=== PATIENT | female | born 1955 | race Caucasian/White ===

== ENCOUNTER → 2019-05-03 | Outpatient (CLI) | payer OTHER ==
[~2019-05-03] MED LIST: Budeprion Xl300 MG PO; CENTRUM SILVER1 EAC3 PO; Celexa10 MG PO; LEVSOD88 PO
[2019-05-03 15:27] LABS: Source, Urine Clean Catch
[2019-05-03 16:18] LABS: Bilirubin, Urine Neg (Neg); Blood, Urine Neg (Neg); Glucose Qualitative, Urine Neg (Neg); Ketones, Urine Neg (Neg); Leukocyte Esterase, Urine Neg (Neg); Nitrite, Urine Neg (Neg); Protein, Urine Neg (Neg); Urobilinogen, Urine NORM (Normal)
[2019-05-03 16:19] LABS: Appearance, Urine Clear (Clear); Color, Urine Yellow (P-Yellow)
== END | disposition home or self-care (01) ==
LOC: LAB 15:26 → LAB SHORT 15:26
PROVIDERS: Registered Nurse
DX: R32 Unspecified urinary incontinence (principal)
CPT/HCPCS: 81003

== ENCOUNTER → 2020-05-18 | Outpatient (CLI) | payer OTHER | END | disposition home or self-care (01) | LOC: PLD 08:54 → LAB SHORT 08:54 | DX: D22.4 Melanocytic nevi of scalp and neck (principal) | CPT/HCPCS: 88305 ==

== ENCOUNTER → 2021-04-19 | Outpatient (CLI) | payer MEDICARE, OTHER | LOC: LAB SHORT 16:45 | DX: R10.9 Unspecified abdominal pain (principal); R19.7 Diarrhea, unspecified | CPT/HCPCS: 87086 ==

== ENCOUNTER → 2021-05-05 | Outpatient (CLI) | payer MEDICARE, OTHER | END | disposition home or self-care (01) | LOC: LAB SHORT 10:56 | DX: D22.71 Melanocytic nevi of right lower limb, including hip (principal); L81.4 Other melanin hyperpigmentation | CPT/HCPCS: 88305 ==

== ENCOUNTER 2022-10-10 07:44 | Day surgery (SDC) | payer MEDICARE, OTHER ==
[~2022-10-10] VITALS: Ht 167.6 cm; Wt 61.7 kg
== END 2022-10-10 09:46 | disposition home or self-care (01) ==
LOC: ORSCSDS 07:44
PROVIDERS: Internal Medicine Gastroenterology
PROC: 0DBK8ZX Excision of Ascending Colon, Via Natural or Artificial Opening Endoscopic, Diagnostic (ICD-10-PCS; principal; 2022-10-10 09:00)
DX: Z12.11 Encounter for screening for malignant neoplasm of colon (principal); Z86.010 Personal history of colon polyps; D37.4 Neoplasm of uncertain behavior of colon; K57.30 Diverticulosis of large intestine without perforation or abscess without bleeding; E03.9 Hypothyroidism, unspecified; Z85.3 Personal history of malignant neoplasm of breast; Z79.899 Other long term (current) drug therapy
CPT/HCPCS: J2704; J7120

== ENCOUNTER → 2023-10-20 | Outpatient (CLI) | payer MEDICARE, OTHER ==
[2023-10-20 17:11] LABS: Bacterial Vaginosis PCR Negative (NEGATIVE); Candida Group, PCR NOT DETECTED (NOT DETECT); Candida glabrata-krusei, PCR NOT DETECTED (NOT DETECT)
== END | disposition home or self-care (01) ==
LOC: LAB SHORT 14:40 → LAB 14:40
PROVIDERS: Family Medicine
DX: Z01.419 Encounter for gynecological examination (general) (routine) without abnormal findings (principal)
CPT/HCPCS: 87481; 87661; 87801

== ENCOUNTER 2025-06-16 07:17 | Day surgery (SDC) | payer MEDICARE, OTHER ==
[~2025-06-16] VITALS: Ht 165.1 cm; Wt 61.2 kg
[2025-06-16] MEDS ORDERED: Bupivacaine 0.5% HCl 5 MG/ML 30MLVIAL ONE (07:23)
[2025-06-16] MEDS ORDERED: Midazolam HCl 1MG / ML 2ML Vial ONE (07:31)
[2025-06-16] MEDS ORDERED: Vitamin C100 M1 (07:40)
[2025-06-16] MEDS ORDERED: POTASSIUM (07:41)
[2025-06-16] MEDS ORDERED: PROBIOTIC1 EA14 (07:42)
[2025-06-16] MEDS ORDERED: CALCIUM (07:42)
[2025-06-16] MEDS ORDERED: IRON (07:42)
[2025-06-16] MEDS ORDERED: VITAMIN D5000 UNIT (07:43)
[2025-06-16] MEDS ORDERED: OXYB5 (07:43)
[2025-06-16] MEDS ORDERED: FISH OIL 1,0001 EA10 (07:43)
[2025-06-16] MEDS ORDERED: RED YEAST RICE55 MG (07:43)
[2025-06-16] MEDS ORDERED: FentaNYL Citrate 50 MCG/ML 2 ML Injection ONE (07:50)
[2025-06-16] MEDS ORDERED: Clindamycin 600mg in D5W 50 ML IV ONE (08:10)
[2025-06-16] MEDS ORDERED: Lidocaine HCl 2% 10 ML SDA ONE (08:17)
--- NOTE | 2025-06-16 08:42 | NUR ---
06/16/25 0842 Keke Snow OF LEFT ARM IN PREOP T/O AT 0830 START AT 0834 END AT 0836
[2025-06-16] MEDS ORDERED: Dexamethasone Sod Phos 10 MG/ML 1ML VIAL ONE (08:52)
[2025-06-16] MEDS ORDERED: Ondansetron HCl 2 MG / ML 2ML Vial ONE (08:52)
[2025-06-16 09:57] VITALS: BP 128/69
--- NOTE | 2025-06-16 10:04 | NUR ---
06/16/25 1004 MEGAN NAPIER PT REPORTS PAIN 09/02, DENIES NAUSEA
== END 2025-06-16 10:55 | disposition home or self-care (01) ==
LOC: ORSCSDS 07:17
PROVIDERS: Orthopaedic Surgery
PROC: 0RRT07Z Replacement of Left Carpometacarpal Joint with Autologous Tissue Substitute, Open Approach (ICD-10-PCS; principal; 2025-06-16 08:30)
PROC: 0LN60ZZ Release Left Lower Arm and Wrist Tendon, Open Approach (ICD-10-PCS; principal; 2025-06-16 08:30)
DX: M18.0 Bilateral primary osteoarthritis of first carpometacarpal joints (principal); M65.4 Radial styloid tenosynovitis [de Quervain]; E07.9 Disorder of thyroid, unspecified; H81.09 Meniere's disease, unspecified ear; Z79.899 Other long term (current) drug therapy
CPT/HCPCS: C1713; J1100; J2003; J2250; J2405; J2704; J3010; J7120